=== PATIENT | female | born 2000 | race African-American/Black ===

== ENCOUNTER 2018-01-27 18:03 | Emergency (ER) | payer OTHER ==
[~2018-01-27] VITALS: Ht 157.5 cm; Wt 54.0 kg
[~2018-01-27 18:03] MED LIST: BENADRYL25 MG
== END 2018-01-27 21:32 | disposition home or self-care (01) ==
LOC: ER 18:03
DX: M62.830 Muscle spasm of back (principal)

== ENCOUNTER 2018-06-17 19:05 | Emergency (ER) | payer OTHER ==
[~2018-06-17] VITALS: Ht 152.4 cm; Wt 54.4 kg
== END 2018-06-17 22:50 | disposition home or self-care (01) ==
LOC: ER 19:05
DX: R11.2 Nausea with vomiting, unspecified (principal); M54.89 Other dorsalgia; E86.0 Dehydration

== ENCOUNTER 2018-10-17 11:03 | Emergency (ER) | payer OTHER ==
[~2018-10-17] VITALS: Ht 152.4 cm; Wt 61.7 kg
== END 2018-10-17 14:18 | disposition home or self-care (01) ==
LOC: ER 11:03
DX: M94.0 Chondrocostal junction syndrome [Tietze] (principal)

== ENCOUNTER 2019-11-02 08:11 | Emergency (ER) | payer OTHER ==
[~2019-11-02] VITALS: Ht 152.4 cm; Wt 68.0 kg
== END 2019-11-02 13:19 | disposition home or self-care (01) ==
LOC: ER 08:11
DX: B34.9 Viral infection, unspecified (principal)

== ENCOUNTER 2020-06-16 08:43 | Emergency (ER) | payer OTHER ==
[~2020-06-16] VITALS: Ht 152.4 cm; Wt 65.3 kg
[2020-06-16] MEDS ORDERED: ZOFRAN8 MG PO (08:52)
[2020-06-16] MEDS ORDERED: DICY20TA PO (08:52)
== END 2020-06-16 15:37 | disposition home or self-care (01) ==
LOC: ER 08:43
DX: K29.60 Other gastritis without bleeding (principal); K52.89 Other specified noninfective gastroenteritis and colitis; Z03.818 Encounter for observation for suspected exposure to other biological agents ruled out

== ENCOUNTER 2021-06-18 16:50 | Emergency (ER) | payer OTHER ==
[~2021-06-18] VITALS: Ht 152.4 cm; Wt 81.6 kg
[~2021-06-18 16:50] MED LIST changes: +DICY20TA PO; +ZOFRAN8 MG PO
[2021-06-18] MEDS ORDERED: FLUCONAZOLE150 MG PO (19:06)
[2021-06-18] MEDS ORDERED: ZITHROMAX200 MG PO (19:06)
== END 2021-06-18 20:14 | disposition home or self-care (01) ==
LOC: ER 16:50
DX: A49.3 Mycoplasma infection, unspecified site (principal); Z03.818 Encounter for observation for suspected exposure to other biological agents ruled out

== ENCOUNTER 2022-12-11 02:58 | Emergency (ER) | payer OTHER ==
[~2022-12-11] VITALS: Ht 152.4 cm; Wt 90.7 kg
[~2022-12-11 02:58] MED LIST changes: +FLUCONAZOLE150 MG PO; +PHENAGIL TABLE1 EACH PO; +ZITHROMAX200 MG PO; +ZYNCOF 20-400120 ML PO
[2022-12-11] MEDS ORDERED: ACETAMINOPHEN650 M2 PO (06:45)
[2022-12-11] MEDS ORDERED: LEVALBUTER0.31 MG/3 IH (06:45)
[2022-12-11] MEDS ORDERED: MEDROLPACK PO (06:45)
[2022-12-11] MEDS ORDERED: AZITHROMYCIN250 MG PO (06:45)
[2022-12-11] MEDS ORDERED: MUCINEX DM ER1 EAC1 PO (06:45)
== END 2022-12-11 06:51 | disposition home or self-care (01) ==
LOC: ER 02:58
DX: J06.9 Acute upper respiratory infection, unspecified (principal); Z20.828 Contact with and (suspected) exposure to other viral communicable diseases

== ENCOUNTER 2023-05-13 10:52 | Emergency (ER) | payer OTHER ==
[~2023-05-13] VITALS: Ht 152.4 cm; Wt 89.8 kg
[~2023-05-13 10:52] MED LIST changes: +ACETAMINOPHEN650 M2 PO; +AZITHROMYCIN250 MG PO; +LEVALBUTER0.31 MG/3 IH; +MEDROLPACK PO; +MUCINEX DM ER1 EAC1 PO
== END 2023-05-13 16:02 | disposition home or self-care (01) ==
LOC: ER 10:52
DX: K29.70 Gastritis, unspecified, without bleeding (principal)

== ENCOUNTER 2023-07-12 18:56 | Emergency (ER) | payer OTHER ==
[~2023-07-12] VITALS: Ht 154.9 cm; Wt 68.0 kg
[2023-07-13] MEDS ORDERED: ONDANSETRON ODT4 MG PO (02:54)
[2023-07-13] MEDS ORDERED: LEVSIN/SL0.125 MG SL (02:54)
[2023-07-13] MEDS ORDERED: PEPCID40 MG PO (02:54)
== END 2023-07-13 05:38 ==
LOC: ER 18:56
PROVIDERS: General Practice
DX: R11.10 Vomiting, unspecified (principal); R10.31 Right lower quadrant pain

== ENCOUNTER 2023-07-15 23:35 | Emergency (ER) | payer OTHER ==
[~2023-07-15] VITALS: Ht 154.9 cm; Wt 80.7 kg
[~2023-07-15 23:35] MED LIST changes: +LEVSIN/SL0.125 MG SL; +ONDANSETRON ODT4 MG PO; +PEPCID40 MG PO
== END 2023-07-16 07:28 | disposition home or self-care (01) ==
LOC: ER 23:35
DX: R10.13 Epigastric pain (principal); R11.10 Vomiting, unspecified; Z88.6 Allergy status to analgesic agent

== ENCOUNTER 2023-07-21 17:28 | Inpatient (IN) | payer OTHER ==
[~2023-07-21] VITALS: Ht 154.9 cm; Wt 77.1 kg
--- NOTE | 2023-07-21 17:40 | NUR ---
PTE ALERTA,ESTABLE Y ORIENTADA,ESTA REFIERE QUE DESDE HACE 2 SEMANAS CONTINUA CON LOS VOMITOS Y DIARREAS
--- NOTE | 2023-07-21 18:02 | NUR ---
MS DIAZ ORIENTA PTE SOBRE TX MEDICO EL CUAL REFIERE ENTENDER.SE LE EXTRAEN MUESTRAS BAJO MEDIDAS ASEPTICAS,SE CANALIZA Y SE ADMINISTRAN MEDICAMENTOS SHIRLENE ORDEN MEDICA.
[2023-07-21 18:26] LABS: HEMATOCRIT 35.9 % (36.0-45.00); HEMOGLOBIN 12.3 g/dL (12.0-15.00); MEAN CELL VOLUME 76.1 fL (80.00-100.00); MEAN CORPUSCULAR HGB CONC 34.1 g/dl (32.0-36.0); PLATELET COUNT 247 K/uL (150-450); RED BLOOD COUNT 4.72 M/uL (4.00-6.00); RED CELL DISTRIBUTION WIDTH 15.8 % (11.5-14.5)
[2023-07-21 18:47] LABS: ALBUMIN 2.3 gm/dL (3.4-5.0); BILIRUBIN TOTAL 0.79 mg/dL (0.3-1.2); CALCIUM 8.3 mg/dL (8.5-10.1); CREATININE SERUM 0.72 mg/dL (0.55-1.02); GFR 98.69; GLOBULINA 5.4 G/DL (2.4-3.5); TOTAL PROTEIN 7.7 gm/dL (6.4-8.2)
[2023-07-21 18:58] LABS: POTASSIUM 2.97 mEq/L (3.5-5.1)
[2023-07-22 01:29] LABS: INR 1.12; PARTIAL THROMBOPLASTIN TIME 27.6 SECONDS (22.0-34.0); PROTHROMBIN TIME 11.7 SECONDS (9.0-11.5)
[2023-07-23 08:30] LABS: BILIRUBIN TOTAL 0.68 mg/dL (0.3-1.2); CALCIUM 7.8 mg/dL (8.5-10.1); CREATININE SERUM 0.74 mg/dL (0.55-1.02); GFR 95.62; GLOBULINA 4.3 G/DL (2.4-3.5); POTASSIUM 3.34 mEq/L (3.5-5.1); TOTAL PROTEIN 6.3 gm/dL (6.4-8.2)
[2023-07-23 08:30] LABS: HEMATOCRIT 31.3 % (36.0-45.00); HEMOGLOBIN 10.6 g/dL (12.0-15.00); MEAN CELL VOLUME 77.7 fL (80.00-100.00); MEAN CORPUSCULAR HEMOGLOBIN 26.3 pg (27.00-32.0); MEAN CORPUSCULAR HGB CONC 33.9 g/dl (32.0-36.0); PLATELET COUNT 224 K/uL (150-450); RED BLOOD COUNT 4.03 M/uL (4.00-6.00)
[2023-07-25] MEDS ORDERED: OMEPRAZOLE40 MG (14:42)
[2023-07-26 08:13] LABS: HEMATOCRIT 31.2 % (36.0-45.00); HEMOGLOBIN 10.6 g/dL (12.0-15.00); MEAN CELL VOLUME 76.7 fL (80.00-100.00); MEAN CORPUSCULAR HEMOGLOBIN 26.1 pg (27.00-32.0); PLATELET COUNT 223 K/uL (150-450); RED BLOOD COUNT 4.06 M/uL (4.00-6.00); RED CELL DISTRIBUTION WIDTH 16.2 % (11.5-14.5)
[2023-07-26 09:08] LABS: hav igm Negative (Negative); hcv Non Reactive (Non Reactive); hep b c Negative (Negative)
[2023-07-26 09:11] LABS: ALBUMIN 1.9 gm/dL (3.4-5.0); BILIRUBIN TOTAL 0.41 mg/dL (0.3-1.2); CALCIUM 7.7 mg/dL (8.5-10.1); CREATININE SERUM 0.65 mg/dL (0.55-1.02); GFR 111.06; POTASSIUM 3.11 mEq/L (3.5-5.1); TOTAL PROTEIN 5.9 gm/dL (6.4-8.2)
[2023-07-26 21:06] LABS: chla t Negative (Negative); neiss Negative (Negative)
== END 2023-07-27 12:56 | disposition home or self-care (01) | DRG 392 ==
LOC: ER 17:28 → SURG 22:48 → SURH 07-22 22:24
PROVIDERS: General Practice; Internal Medicine Infectious Disease; ADMIT Internal Medicine; ATTEND Internal Medicine
PROC: BW21YZZ Computerized Tomography (CT Scan) of Abdomen and Pelvis using Other Contrast (ICD-10-PCS; principal; 2023-07-21)
PROC: BW40ZZZ Ultrasonography of Abdomen (ICD-10-PCS; 2023-07-21)
PROC: BW30YZZ Magnetic Resonance Imaging (MRI) of Abdomen using Other Contrast (ICD-10-PCS; 2023-07-23)
DX: K52.9 Noninfective gastroenteritis and colitis, unspecified (principal); N39.0 Urinary tract infection, site not specified; K29.70 Gastritis, unspecified, without bleeding; E86.0 Dehydration; J10.1 Influenza due to other identified influenza virus with other respiratory manifestations; I88.0 Nonspecific mesenteric lymphadenitis; I88.9 Nonspecific lymphadenitis, unspecified; D18.09 Hemangioma of other sites
CPT/HCPCS: 74185